=== PATIENT | male | born 1970 | race African-American/Black ===

== ENCOUNTER 2024-08-11 14:19 | Emergency (ER) | payer BC ==
[~2024-08-11] VITALS: Ht 180.3 cm; Wt 99.8 kg
[2024-08-11 14:57] VITALS: BP 165/103; PULSE 81; RESP 18; TEMP 97.9
[2024-08-11 14:58] LABS: BASOPHIL % 0.2 % (0.2-1.2); EOSINOPHIL # 0.1 10^3/uL (0.0-0.2); EOSINOPHIL % 0.4 % (0.0-5.0); HEMATOCRIT(ML) 48.3 % (37.0-53.0); LYMPHOCYTES # 1.56 10^3/uL1 (1.0-4.8); LYMPHOCYTES % 11.2 % (24.0-44.0); MEAN CORP HGB 30.1 pg (26-34); MEAN CORP HGB CONCENTRATION 33.1 g/dL (33-36.5); MONOCYTES # 0.8 10^3/uL (0.3-0.8); MONOCYTES % 5.9 % (5.0-12.0); NEUTROPHIL # 11.4 10^3/uL (1.8-7.7); NEUTROPHILS % 82.2 % (41.0-85.0); PLATELET COUNT 325 10^3/uL (150-400); RED BLOOD CELL 5.31 10^6/uL (4.50-5.90); RED CELL DISTRIBUTION WIDTH 14.6 % (11.5-14.5); WHITE BLOOD CELL 13.9 10^3/uL (4.5-11.0)
[2024-08-11 15:00] LABS: +ADD MANUAL DIFF(NO CHRG) NO
[2024-08-11 15:14] VITALS: BP 165/103; PULSE 81; RESP 18; TEMP 97.9; O2SAT 98
[2024-08-11] MEDS ORDERED: ZOFRAN ONE (15:24)
[2024-08-11] MEDS ORDERED: OFIRMEV 100 ML IV ONE (15:25)
[2024-08-11] MEDS: OFIRMEV 100 ML IV ONE (15:28)
[2024-08-11] MEDS: ZOFRAN IV PRN (15:28)
[2024-08-11 15:52] LABS: ALANINE AMINOTRANSFERASE(ML) 31 U/L (12-78); ALBUMIN(ML) 3.7 g/dL (3.4-5.0); ALBUMIN/GLOBULIN RATIO 0.948; ALKALINE PHOSPHATASE 74 U/L (50-136); ANION GAP 15.3; ASPARTATE AMINO TRANSFERASE 20 U/L (0-35); CALCIUM 8.6 mg/dL (8.4-10.5); CARBON DIOXIDE 25.8 mmol/L (20.0-32); CREATININE SERUM 1.15 mg/dL (0.59-1.40); EST GFR, NON-AA 66.5 (>/=60); GLUCOSE 134 mg/dL (74-106); POTASSIUM 3.1 mmol/L (3.6-5.2); SODIUM 140 mmol/L (132-145)
[2024-08-11 15:57] LABS: APPEARANCE,URINE CLEAR; BILIRUBIN,URINE NEGATIVE (NEGATIVE); LEUKOCYTE ESTERASE ,URINE NEGATIVE (NEGATIVE); NITRATE,URINE NEGATIVE (NEGATIVE); PH,URINE 5.5 (4.5-8.0); UA COLOR YELLOW; UROBILINOGEN,URINE 0.2 E.U./dL (0.2)
[2024-08-11 16:05] LABS: UAMPH METHAMP(SCRN) NEGATIVE (co1000ng/mL); UR MDMA (ECSTASY) SCRN NEGATIVE (c/o300ng/mL); UR METHADONE SCRN NEGATIVE (c/o300ng/mL); UR OPIATE SCRN NEGATIVE (c/o300ng/mL); UR PHENCYCLIDINE (PCP) SCRN NEGATIVE (c/o 25ng/mL)
[2024-08-11 16:07] LABS: UR TETRAHYDROCANNABINOL SCRN PRESUMPTIVE POSITIVE (c/o 50ng/mL)
[2024-08-11 16:15] VITALS: BP 166/124; PULSE 102; RESP 18; TEMP 97.9; O2SAT 96
[2024-08-11] MEDS ORDERED: POTASSIUM CHLORIDE ONE (16:28)
[2024-08-11] MEDS ORDERED: D5W-1/2NS 1000ML 1,000 ML ONE (16:28)
[2024-08-11] MEDS: POTASSIUM CHLORIDE PO STA (16:32)
[2024-08-11] MEDS: D5W-1/2NS 1000ML 1,000 ML IV ONE (16:33)
[2024-08-11 17:15] VITALS: BP 150/103; PULSE 86; RESP 18; TEMP 97.9; O2SAT 98
[2024-08-11] MEDS ORDERED: MYLANTA ONE (18:02)
[2024-08-11] MEDS ORDERED: LIDOCAINE HCL VISCOUS ONE (18:02)
[2024-08-11] MEDS: MYLANTA PO STA (18:08)
[2024-08-11] MEDS: LIDOCAINE HCL VISCOUS MM STA (18:09)
[2024-08-11 18:17] VITALS: BP 171/103; PULSE 96; RESP 18; TEMP 97.9; O2SAT 97
[2024-08-11] MEDS ORDERED: HYDROCHLOROTHIAZIDE ONE (18:49)
[2024-08-11] MEDS ORDERED: CATAPRES ONE (18:49)
[2024-08-11] MEDS: HYDROCHLOROTHIAZIDE PO STA (18:54)
[2024-08-11] MEDS: CATAPRES PO STA (18:55)
[2024-08-11 19:06] LABS: TROPONIN I HIGH SENSITIVITY < 4 ng/L (0-75)
[2024-08-11 19:15] VITALS: BP 160/97; PULSE 92; RESP 18; O2SAT 98
== END 2024-08-11 19:20 | disposition home or self-care (01) ==
LOC: ER 14:19
DX: K04.7 Periapical abscess without sinus (principal); I10 Essential (primary) hypertension; G44.209 Tension-type headache, unspecified, not intractable; F12.90 Cannabis use, unspecified, uncomplicated; Z79.899 Other long term (current) drug therapy
CPT/HCPCS: 99284; 96374; 70450; 96361; 96375; 80053; 85025; 82948; 36415; 84484; 83605 ×2; 80307; 93005; 81001; J0131; J3490; J2405; 99291

== ENCOUNTER 2024-08-12 14:57 | Observation (INO) | payer BC ==
[~2024-08-12] VITALS: Ht 182.9 cm; Wt 90.8 kg
[2024-08-12] VITALS (8 sets, daily range): BP systolic 180–206; BP diastolic 103–116; PULSE 74–86; RESP 18–20; TEMP 98.1; O2SAT 96
[2024-08-12 15:45] LABS: ANION GAP 14.1; BUN/CREATININE RATIO 12.24 (10.0-20.0); CALCIUM 8.4 mg/dL (8.4-10.5); CARBON DIOXIDE 25.3 mmol/L (20.0-32); CREATININE SERUM 0.98 mg/dL (0.59-1.40); POTASSIUM 3.4 mmol/L (3.6-5.2)
[2024-08-12] MEDS ORDERED: ASPIRIN ONE (18:15)
[2024-08-12] MEDS ORDERED: PLAVIX ONE (18:15)
[2024-08-12] MEDS: PLAVIX PO STA (18:19)
[2024-08-12] MEDS: ASPIRIN PO STA (18:19)
[2024-08-12] MEDS: LIPITOR PO SCH (22:02)
[2024-08-13] VITALS (13 sets, daily range): BP systolic 164–183; BP diastolic 90–124; PULSE 68–80; RESP 18; TEMP 96.9–98.9; O2SAT 94–97
[2024-08-13] MEDS ORDERED: APRESOLINE IV PRN (04:00)
[2024-08-13 05:50] LABS: HEMATOCRIT(ML) 41.9 % (37.0-53.0); HEMOGLOBIN 14.3 g/dL (13.9-16.3); MEAN CORP HGB 30.8 pg (26-34); MEAN CORP HGB CONCENTRATION 34.1 g/dL (33-36.5); MEAN CORP VOLUME 90.3 fL (78-100); RED BLOOD CELL 4.64 10^6/uL (4.50-5.90); WHITE BLOOD CELL 9.9 10^3/uL (4.5-11.0)
[2024-08-13 06:22] LABS: ALBUMIN(ML) 3.2 g/dL (3.4-5.0); ALBUMIN/GLOBULIN RATIO 0.842; ANION GAP 11.2; BUN/CREATININE RATIO 17.2 (10.0-20.0); CARBON DIOXIDE 25.3 mmol/L (20.0-32); CREATININE SERUM 0.93 mg/dL (0.59-1.40); POTASSIUM 3.5 mmol/L (3.6-5.2)
[2024-08-13 06:27] LABS: CALCIUM 8.2 mg/dL (8.4-10.5)
[2024-08-13 06:43] LABS: LDL/HDL RATIO 1.6
[2024-08-13] MEDS: PLAVIX PO SCH (08:37)
[2024-08-13] MEDS: ASPIRIN EC PO SCH (08:37)
[2024-08-14] VITALS (11 sets, daily range): BP systolic 146–170; BP diastolic 93–102; PULSE 61–65; RESP 17–18; TEMP 96.4–98; O2SAT 94–98
[2024-08-14 06:07] LABS: BASOPHIL % 0.3 % (0.2-1.2); EOSINOPHIL # 0.2 10^3/uL (0.0-0.2); EOSINOPHIL % 2.6 % (0.0-5.0); HEMATOCRIT(ML) 43.1 % (37.0-53.0); HEMOGLOBIN 15.1 g/dL (13.9-16.3); LYMPHOCYTES # 2.87 10^3/uL1 (1.0-4.8); LYMPHOCYTES % 31.4 % (24.0-44.0); MEAN CORP HGB 31.5 pg (26-34); MEAN CORP VOLUME 89.8 fL (78-100); MONOCYTES # 0.7 10^3/uL (0.3-0.8); MONOCYTES % 8.1 % (5.0-12.0); NEUTROPHIL # 5.2 10^3/uL (1.8-7.7); NEUTROPHILS % 57.4 % (41.0-85.0); PLATELET COUNT 314 10^3/uL (150-400); RED CELL DISTRIBUTION WIDTH 14.8 % (11.5-14.5); WHITE BLOOD CELL 9.1 10^3/uL (4.5-11.0)
[2024-08-14 06:20] LABS: ALBUMIN(ML) 3.2 g/dL (3.4-5.0); ALBUMIN/GLOBULIN RATIO 0.864; ANION GAP 10.4; BUN/CREATININE RATIO 15.46 (10.0-20.0); CALCIUM 8.5 mg/dL (8.4-10.5); CREATININE SERUM 0.97 mg/dL (0.59-1.40); POTASSIUM 3.4 mmol/L (3.6-5.2)
[2024-08-14 06:27] LABS: +ADD MANUAL DIFF(NO CHRG) NO
[2024-08-14] MEDS ORDERED: ASPI325T17 PO (14:20)
[2024-08-14] MEDS ORDERED: ATOR40TA PO (14:20)
[2024-08-14] MEDS ORDERED: CLOP75TA PO (14:20)
[2024-08-14] MEDS ORDERED: LISI20TA21 PO (14:20)
== END 2024-08-14 14:50 | disposition home or self-care (01) ==
LOC: ER 14:57 → OBS 18:04
PROVIDERS: ADMIT Hospitalist; ATTEND Student in an Organized Health Care Education/Training Program
DX: I63.9 Cerebral infarction, unspecified (principal); I16.1 Hypertensive emergency; G45.9 Transient cerebral ischemic attack, unspecified; I10 Essential (primary) hypertension; F17.210 Nicotine dependence, cigarettes, uncomplicated; Z79.899 Other long term (current) drug therapy; Z79.82 Long term (current) use of aspirin
CPT/HCPCS: 99291; 70498; 70496; 36415 ×3; 80048; 92523; 70551; 80053 ×2; 85027; 80061; 82607; 84443; 82746; 83036; 93306; 97163; 85025; 97530; G0378 ×43; J8499; Q9965